=== PATIENT | female | born 1985 | race African-American/Black ===

== ENCOUNTER 2018-09-23 14:00 | Emergency (ER) | payer SELFPAY ==
[~2018-09-23] VITALS: Ht 160 cm; Wt 45.8 kg
[~2018-09-23 14:00] MED LIST: DOCU-144 PO; FER325 PO; NAPR-683 PO; ONDA4TAB14 PO
[2018-09-23 14:04] VITALS: BP 137/74; PULSE 102; RESP 18; Ht 160 cm; Wt 45.8 kg
== END 2018-09-23 15:50 | disposition left against medical advice (07) ==
LOC: FTE 14:00
DX: Z53.21 Procedure and treatment not carried out due to patient leaving prior to being seen by health care provider (principal)